=== PATIENT | male | born 1955 | race Caucasian/White ===

== ENCOUNTER 2025-01-24 14:40 | Observation (INO) ==
[2025-01-24 15:11] LABS: Basophils # (auto) 0.06 K/uL (0.00-0.20); Basophils % (auto) 0.8 %; Eosinophils # (auto) 0.98 K/uL (0.00-0.50); Eosinophils % (auto) 12.3 %; Hematocrit (blood only) 35.9 % (42.0-52.0); Hemoglobin 12.2 g/dl (14.0-18.0); Immature Granulocytes # (auto) 0.03 K/uL (0.01-0.20); Immature Granulocytes % (auto) 0.4 %; Lymphocytes # (auto) 2.05 K/uL (1.20-3.40); Lymphocytes % (auto) 25.7 %; Mean Corpuscular Hemoglobin 30.1 pg (25.0-34.0); Mean Corpuscular Volume 88.6 fL (80.0-100.0); Mean Platelet Volume 8.9 fL (9.4-12.4); Monocytes # (auto) 0.63 K/uL (0.11-0.59); Monocytes % (auto) 7.9 %; Neutrophils # (auto) 4.22 K/uL (1.40-6.50); Neutrophils % (auto) 52.9 %; Platelet Count 206 K/uL (130-400); RDW Coefficient of Variation 12.4 % (11.5-14.5); RDW Standard Deviation 40.8 fL (36.4-46.3); Red Blood Count 4.05 M/uL (4.70-6.10); White Blood Count 7.97 K/ul (4.8-10.8)
[2025-01-24 15:14] LABS: iSTAT Creatinine 1.6 mg/dl (0.6-1.3); iSTAT Hemoglobin 11.6 g/dl (14.0-18.0); iSTAT Ionized Calcium 1.05 mmol/l (1.12-1.32); iSTAT Potassium 3.9 mmol/L (3.3-5.0)
--- NOTE | 2025-01-24 15:21 | XRay Report ---
HISTORY: Weakness. TECHNIQUE: Portable AP radiograph of the chest. COMPARISON: None. FINDINGS: Increased interstitial markings throughout both lungs. Linear opacities involving both mid lungs favoring superimposed atelectasis or scarring. No pneumothorax or definite effusion. Top normal heart size. Left-sided aortic arch. Rightward tracheal deviation. Included upper abdomen is unremarkable. IMPRESSION: * Increased interstitial markings throughout both lungs are nonspecific and could represent chronic interstitial lung disease/fibrosis, interstitial pulmonary edema, or atypical pneumonia. No prior studies are available for comparison. Electronically signed by Tarun Barnes 01-24-2025 3:21 PM
[2025-01-24 15:30] LABS: Alanine Aminotransferase 8 U/L (7-52); Albumin Globulin Ratio 0.9 (0.9-2); Albumin Level 3.6 gm/dl (3.4-5.0); Alkaline Phosphatase 80 U/L (34-104); Anion Gap 8 (3-11); Aspartate Aminotransferase 22 U/L (13-39); BUN Creatinine Ratio 23.9 (10-20); Bilirubin,Total 0.4 mg/dl (0.2-1.0); Blood Urea Nitrogen 32 mg/dl (6-23); Calcium 8.6 mg/dl (8.6-10.3); Carbon Dioxide 27 mmol/L (21-32); Chloride 100 mmol/L (98-107); Creatine Kinase 66 U/L (30-223); Creatinine Clr Calc Pharmacy 46.5 ml/min; Globulin 4.1 gm/dl (2.5-4.0); Glucose 102 mg/dl (70-99(Fasting)); Magnesium 1.9 mg/dl (1.7-2.4); Potassium 3.9 mmol/L (3.5-5.1); Sodium 135 mmol/L (136-145); Total Protein 7.7 gm/dl (6.0-8.3)
--- NOTE | 2025-01-24 15:31 | Emergency Department Note ---
Impression & Plan Near syncope, Hypotension, History of recent stroke, Rash ED Provider Note Provider: Terry Bains MD CHIEF COMPLAINT: Near syncope, low blood pressure HISTORY OF PRESENT ILLNESS: Patient is a 69-year-old gentleman history of hypertension and CVA presenting here via ambulance today. Patient was a passenger and his was driving. About half hour before arrival developed significant near syncope and blurry vision and a warm feeling. Reports some back discomfort at that time. Patient significantly reports that he was hospitalized this past Sunday and Sunday at [facility] for stroke. Evidently had not been taking his blood pressure medicines for some time. Was restarted on medicines this week. Did have some food earlier today. Has been doing well. Last week blood pressure was over 200 systolic and he had generalized weakness in all 4 extremities by his report. No recurrence of that today. Has been on aspirin and Plavix since the stroke. [place] [facility] [place] Did noted developing overnight a bit of a rash on his stomach and chest. thinks on further thought that maybe this was a reaction to the HCTZ blood pressure medicine and thinks that they may have stopped it previously as this was an issue. Patient is on a KINGSLEY inhibitor and took those this morning. Received 500 mL of normal saline for EMS as was found to be 60 systolic blood pressure for them. Upon arrival blood pressure has improved. He is feeling improved denies any back pain. No chest pain reported. PAST MEDICAL HISTORY: As noted above MEDICATIONS: Reviewed home medications SOCIAL HISTORY: , smoker PHYSICAL EXAM: GENERAL: alert and oriented in no acute distress on stretcher, patient a bit tangential during discussion. Head: normocephalic and atraumatic EYES: No injection, discharge or icterus. EOMI. NECK: Trachea midline. Supple. ENT: Mucous membranes pink and moist. LUNGS: Airway patent. No retractions. Breath sounds clear with good air entry bilaterally. HEART: Regular rate and rhythm. No chest wall tenderness ABDOMEN: Soft and non-tender, without guarding or rebound. No flank tenderness. SKIN: Acyanotic, warm, dry, with slight maculopapular rashes few actually on the abdomen and chest. EXTREMITIES: Without swelling, tenderness or deformity NEUROLOGICAL: No focal deficits moving all extremities. No aphasia. No facial droop or slurred speech. Normal strength and tone in the extremities. Sensation to gross touch normal. Ambulatory here without issue in the room. EK bpm sinus rhythm with PAC. No PVC. No acute ST segment elevation or depression with a QTc of 473. CONTINUOUS CARDIAC MONITORING: was ordered and showed a heart rate of 70s to 80s bpm in normal sinus rhythm rare PAC Patient's laboratory studies and imaging reviewed. Differential includes Infection, dehydration, metabolic abnormality, hypo/hyperglycemia, electrolyte disturbance, anemia, hypoxia, cardiac sources, intracerebral event, toxicologic, neurologic, as well as other pathologies. IMPRESSION/MEDICAL DECISION MAKING: Bit difficult to get a full history from the patient with provides good additional history. [place] reached out to [facility] but reportedly unable to get records today. Is on aspirin and Plavix after recent CVA and significant hypertension restarted on blood pressure medicines. Question if there could be a possible reaction to blood pressure medicines causing the hypotension as well as possibly developing a bit of a rash across his chest and abdomen. Does not appear anaphylactic by any means. No other recent illness. No chest pain. Had some transient back pain but that resolved now. Denies significant focal deficit or numbness or weakness like recent stroke. Given however he is within a week of this past stroke, will complete a CT and CTAs of the head and neck as well as a CTA of the chest to exclude underlying PE. Given some IV fluid prior to arrival this improved with blood pressure. Given small additional fluid here. Blood work here without significant cytosis or severe anemia. No other fever or infectious symptoms reported but cultures and procalcitonin were sent for completeness. Again do not have prior labs for comparison but no severe electrolyte abnormalities of the creatinine is noted to be slightly elevated 1.3. Troponin is sent but no chest pain reported. Chest x-ray completed showing interstitial findings questioning possibly fluid versus scarring per radiology report. Patient is a smoker. Benign abdomen doubt AAA based on his rapid improvement and lack of pain here. No troponin elevation. Procalcitonin not significantly elevated. No CK or LFT observations of significance. Lactate normal. CT of the head per radiology with microvascular changes and remote left basal ganglia infarct noted. No acute findings reported per radiology. CTA of the head and neck per radiology without acute vascular findings. Discussed with patient and family. Recommend he come in for further evaluation and monitoring. Does have a diffuse rash and will give some Zyrtec and a one- time dose of steroid. Will try to avoid Benadryl given his hypotension and issues earlier. Question family of strong suspicion at this reaction to his HCTZ and they think he was previously taken off of this for this reason. Does not seem consistent with herpes, chickenpox, shingles, or bulla. Will need his medications reviewed and adjusted. Hospitalist team to evaluate the patient. DIAGNOSIS: Near syncope, hypotension, recent CVA, rash DISPOSITION: Hospitalist will evaluate Patient was agreeable with this plan. Past Med/Surg History Problem List (Updated 01/24/25 @ 20:03 by Terry Bains M.D.) Rash (Acute) History of recent stroke (Acute) Hypotension (Acute) Near syncope (Acute) Dehydration Elevated TSH CVA (cerebral vascular accident) Tobacco abuse HLD (hyperlipidemia) HTN (hypertension) with goal to be determined Pre-syncope Social History Smoking Status: Current every day smoker Feels Safe at Home: Yes Allergies Allergies Allergy/AdvReac Type Severity Reaction Status Date / Time hydrochlorothiazide Allergy Severe Rash Unverified 01/24/25 18:05 Home Meds Home Medications Medication Instructions Recorded Confirmed aspirin 81 mg chewable tablet 81 mg PO DAILY 01/24/25 01/24/25 atorvastatin 40 mg tablet 40 mg PO DAILY 01/24/25 01/24/25 clopidogrel 75 mg tablet 75 mg PO QAM 01/24/25 01/24/25 gabapentin 600 mg tablet 600 mg PO Q8H PRN Pain 01/24/25 01/24/25 ramipril 10 mg capsule 10 mg PO DAILY 01/24/25 01/24/25 Results & Data (ED) Vital Signs Vital Signs - 24 hr 01/24/25 14:45 01/24/25 14:54 01/24/25 14:56 Pulse Rate 77 Pulse Rate [Apical] Pulse Rhythm Pulse Rhythm [Apical] Pulse Strength [Apical] Respiratory Rate Respiratory Effort / Characteristics Respiratory Depth Respiratory Pattern Blood Pressure [Right Arm] Blood Pressure Mean [Right Arm] Pulse Oximetry 100 Oxygen Delivery Method Room Air Sepsis Recent Fever Within 48 Hours No Sepsis New/Unexplained Change in Mental Status N/A Sepsis Action Taken by Nursing No Action Required 01/24/25 16:04 01/24/25 16:24 01/24/25 18:00 Pulse Rate 78 Pulse Rate [Apical] 80 76 Pulse Rhythm Regular Pulse Rhythm [Apical] Regular Regular Pulse Strength [Apical] Normal Normal Respiratory Rate 16 18 20 Respiratory Effort / Characteristics Non-Labored Non-Labored Spontaneous Respiratory Depth Normal Normal Respiratory Pattern Regular Regular Blood Pressure [Right Arm] 125/71 155/92 H Blood Pressure Mean [Right Arm] 89 113 Pulse Oximetry 97 98 100 Oxygen Delivery Method Room Air Room Air Room Air Sepsis Recent Fever Within 48 Hours Sepsis New/Unexplained Change in Mental Status Sepsis Action Taken by Nursing 01/24/25 18:41 Pulse Rate 69 Pulse Rate [Apical] Pulse Rhythm Pulse Rhythm [Apical] Pulse Strength [Apical] Respiratory Rate Respiratory Effort / Characteristics Respiratory Depth Respiratory Pattern Blood Pressure [Right Arm] Blood Pressure Mean [Right Arm] Pulse Oximetry Oxygen Delivery Method Sepsis Recent Fever Within 48 Hours Sepsis New/Unexplained Change in Mental Status Sepsis Action Taken by Nursing Laboratory Data 01/24/25 14:55 01/24/25 14:55 Lab Results 01/24/25 01/24/25 01/24/25 Range/Units 14:55 15:01 15:05 WBC 7.97 (4.8-10.8) K/ul RBC 4.05 L (4.70-6.10) M/uL Hgb 12.2 L (14.0-18.0) g/dl POC Hgb 11.6 L (14.0-18.0) g/dl Hct 35.9 L (42.0-52.0) % POC Hct 34 L (42-52) % MCV 88.6 (80.0-100.0) fL MCH 30.1 (25.0-34.0) pg MCHC 34.0 (32.0-36.0) g/dL RDW Std Deviation 40.8 (36.4-46.3) fL RDW Coeff of Cathy 12.4 (11.5-14.5) % Plt Count 206 (130-400) K/uL MPV 8.9 L (9.4-12.4) fL Immature Gran % (Auto) 0.4 % Neut % (Auto) 52.9 % Lymph % (Auto) 25.7 % App[place] % (Auto) 7.9 % Eos % (Auto) 12.3 % Baso % (Auto) 0.8 % Neut # (Auto) 4.22 (1.40-6.50) K/uL Lymph # (Auto) 2.05 (1.20-3.40) K/uL Appling # (Auto) 0.63 H (0.11-0.59) K/uL Eos # (Auto) 0.98 H (0.00-0.50) K/uL Baso # (Auto) 0.06 (0.00-0.20) K/uL Immature Gran # (Auto) 0.03 (0.01-0.20) K/uL POC Sodium 138 (135-144) mmol/L Sodium 135 L (136-145) mmol/L POC Potassium 3.9 (3.3-5.0) mmol/L Potassium 3.9 (3.5-5.1) mmol/L POC Chloride 100 L (101-112) mmol/L Chloride 100 (98-107) mmol/L Carbon Dioxide 27 (21-32) mmol/L POC Total CO2 25 (24-31) mmol/L Anion Gap 8 (3-11) POC Anion Gap 17.0 (16-25) mmol/L POC BUN 30 H (7-18) mg/dl BUN 32 H (6-23) mg/dl Creatinine 1.34 (0.6-1.4) mg/dl POC Creatinine 1.6 H (0.6-1.3) mg/dl Est Cr Clr Drug Dosing 46.5 ml/min eGFR 57.34 BUN/Creatinine Ratio 23.9 H (10-20) Glucose 102 H (70-99(Fasting)) mg/dl POC Glucose (other) 97 (70-99) mg/dl Lactate 1.1 (0.4-2.0) mmol/L Calcium 8.6 (8.6-10.3) mg/dl POC Ioniz Calcium Jaida 1.05 L (1.12-1.32) mmol/l Magnesium 1.9 (1.7-2.4) mg/dl Total Bilirubin 0.4 (0.2-1.0) mg/dl AST 22 (13-39) U/L ALT 8 (7-52) U/L Alkaline Phosphatase 80 (34-104) U/L Total Creatine Kinase 66 (30-223) U/L Troponin I High Sens < 2.3 (0-20) pg/ml Total Protein 7.7 (6.0-8.3) gm/dl Albumin 3.6 (3.4-5.0) gm/dl Globulin 4.1 H (2.5-4.0) gm/dl Albumin/Globulin Ratio 0.9 (0.9-2) Procalcitonin 0.12 (0-0.5) ng/ml TSH 9.165 H (0.300-4.500) uIu/ml Free T4 0.85 (0.61-1.60) ng/dl Urine Color Urine Appearance (Clear) Urine pH (4.5-7.5) Ur Specific [place] (1.000-1.030) Urine Protein (Negative) Urine Glucose (UA) (Negative) Urine Ketones (Negative) Urine Blood (Negative) Urine Nitrite (Negative) Urine Bilirubin (Negative) Urine Urobilinogen (Negative) Ur Leukocyte Esterase (Negative) Adenovirus (PCR) Not Detected (NotDetected) B. pertussis DNA (PCR) Not Detected (NotDetected) B.parapertussis DNA PCR Not Detected (NotDetected) C. pneumoniae DNA (PCR) Not Detected (NotDetected) Coronavirus OC43 (PCR) Not Detected (NotDetected) Coronavirus HKU1 (PCR) Not Detected (NotDetected) Coronavirus 229E (PCR) Not Detected (NotDetected) SARS-CoV-2 (PCR) Not Detected (NotDetected) Coronavirus NL63 (PCR) Not Detected (NotDetected) Human Metapneumovir PCR Not Detected (NotDetected) Influenza Type A (PCR) Not Detected (NotDetected) Influenza Type B (PCR) Not Detected (NotDetected) M. pneumoniae (PCR) Not Detected (NotDetected) Parainfluenza 1 (PCR) Not Detected (NotDetected) Parainfluenza 2 (PCR) Not Detected (NotDetected) Parainfluenza 3 (PCR) Not Detected (NotDetected) Parainfluenza 4 (PCR) Not Detected (NotDetected) RSV (PCR) Not Detected (NotDetected) Entero/Rhino (PCR) Not Detected (NotDetected) 01/24/25 Range/Units 17:15 WBC (4.8-10.8) K/ul RBC (4.70-6.10) M/uL Hgb (14.0-18.0) g/dl POC Hgb (14.0-18.0) g/dl Hct (42.0-52.0) % POC Hct (42-52) % MCV (80.0-100.0) fL MCH (25.0-34.0) pg MCHC (32.0-36.0) g/dL RDW Std Deviation (36.4-46.3) fL RDW Coeff of Cathy (11.5-14.5) % Plt Count (130-400) K/uL MPV (9.4-12.4) fL Immature Gran % (Auto) % Neut % (Auto) % Lymph % (Auto) % [place] % (Auto) % Eos % (Auto) % Baso % (Auto) % Neut # (Auto) (1.40-6.50) K/uL Lymph # (Auto) (1.20-3.40) K/uL [place] # (Auto) (0.11-0.59) K/uL Eos # (Auto) (0.00-0.50) K/uL Baso # (Auto) (0.00-0.20) K/uL Immature Gran # (Auto) (0.01-0.20) K/uL POC Sodium (135-144) mmol/L Sodium (136-145) mmol/L POC Potassium (3.3-5.0) mmol/L Potassium (3.5-5.1) mmol/L POC Chloride (101-112) mmol/L Chloride (98-107) mmol/L Carbon Dioxide (21-32) mmol/L POC Total CO2 (24-31) mmol/L Anion Gap (3-11) POC Anion Gap (16-25) mmol/L POC BUN (7-18) mg/dl BUN (6-23) mg/dl Creatinine (0.6-1.4) mg/dl POC Creatinine (0.6-1.3) mg/dl Est Cr Clr Drug Dosing ml/min eGFR BUN/Creatinine Ratio (10-20) Glucose (70-99(Fasting)) mg/dl POC Glucose (other) (70-99) mg/dl Lactate (0.4-2.0) mmol/L Calcium (8.6-10.3) mg/dl POC Ioniz Calcium Jaida (1.12-1.32) mmol/l Magnesium (1.7-2.4) mg/dl Total Bilirubin (0.2-1.0) mg/dl AST (13-39) U/L ALT (7-52) U/L Alkaline Phosphatase (34-104) U/L Total Creatine Kinase (30-223) U/L Troponin I High Sens (0-20) pg/ml Total Protein (6.0-8.3) gm/dl Albumin (3.4-5.0) gm/dl Globulin (2.5-4.0) gm/dl Albumin/Globulin Ratio (0.9-2) Procalcitonin (0-0.5) ng/ml TSH (0.300-4.500) uIu/ml Free T4 (0.61-1.60) ng/dl Urine Color Yellow Urine Appearance Clear (Clear) Urine pH 7.0 (4.5-7.5) Ur Specific [place] 1.020 (1.000-1.030) Urine Protein Negative (Negative) Urine Glucose (UA) Negative (Negative) Urine Ketones Negative (Negative) Urine Blood Negative (Negative) Urine Nitrite Negative (Negative) Urine Bilirubin Negative (Negative) Urine Urobilinogen Negative (Negative) Ur Leukocyte Esterase Negative (Negative) Adenovirus (PCR) (NotDetected) B. pertussis DNA (PCR) (NotDetected) B.parapertussis DNA PCR (NotDetected) C. pneumoniae DNA (PCR) (NotDetected) Coronavirus OC43 (PCR) (NotDetected) Coronavirus HKU1 (PCR) (NotDetected) Coronavirus 229E (PCR) (NotDetected) SARS-CoV-2 (PCR) (NotDetected) Coronavirus NL63 (PCR) (NotDetected) Human Metapneumovir PCR (NotDetected) Influenza Type A (PCR) (NotDetected) Influenza Type B (PCR) (NotDetected) M. pneumoniae (PCR) (NotDetected) Parainfluenza 1 (PCR) (NotDetected) Parainfluenza 2 (PCR) (NotDetected) Parainfluenza 3 (PCR) (NotDetected) Parainfluenza 4 (PCR) (NotDetected) RSV (PCR) (NotDetected) Entero/Rhino (PCR) (NotDetected) Administered Medications Discontinued Medications Cetirizine HCl (Cetirizine Hcl 10 Mg Tablet) 10 mg PO NOW ONE Stop: 01/24/25 17:04 Last Admin: 01/24/25 18:04 Dose: 10 mg Documented By: MACARENA Dexamethasone Sodium Phosphate (DexamethasonePf 10 Mg/Ml Vial) 6 mg IV NOW ONE Stop: 01/24/25 17:04 Last Admin: 01/24/25 18:04 Dose: 6 mg Documented By: MACARENA Sodium Chloride (Nss) 500 mls @ 999 mls/hr IV .Q31M ONE Stop: 01/24/25 15:52 Last Infusion: 01/24/25 16:33 Dose: Infused Documented By: Admin: 01/24/25 16:02 Dose: 999 mls/hr Documented By: GILDA Ioversol (Optiray 320 125ml) 117 ml IV ONCE ONE Stop: 01/24/25 15:41 Last Admin: 01/24/25 15:41 Dose: 117 ml Documented By: BANNER Imaging Data Radiologist's Impression: Chest X-Ray 01/24/25 14:58 HISTORY: Weakness. TECHNIQUE: Portable AP radiograph of the chest. COMPARISON: None. FINDINGS: Increased interstitial markings throughout both lungs. Linear opacities involving both mid lungs favoring superimposed atelectasis or scarring. No pneumothorax or definite effusion. Top normal heart size. Left-sided aortic arch. Rightward tracheal deviation. Included upper abdomen is unremarkable. IMPRESSION: * Increased interstitial markings throughout both lungs are nonspecific and could represent chronic interstitial lung disease/fibrosis, interstitial pulmonary edema, or atypical pneumonia. No prior studies are available for comparison. Electronically signed by Tarun Barnes 01-24-2025 3:21 PM Chest CTA 01/24/25 15:21 HISTORY: Evaluation for pulmonary embolism. Near syncope. TECHNIQUE: Helical CT angiography of the chest was performed following uneventful administration 117 cc of Optiray 320 IV contrast. Coronal and sagittal 3D MIP reconstructionsAre also provided for interpretation COMPARISON: None. FINDINGS: Mild atherosclerotic vascular disease involving the aorta and arch vessels. No evidence of acute aortic process. No evidence of pulmonary embolism within the limitations of contrast timing and respiratory motion artifact. Main pulmonary artery is normal in caliber. Mild cardiomegaly. Coronary artery calcifications are present. No suspicious mediastinal or hilar lymph nodes. Small hiatal hernia. Included thyroid gland is unremarkable. No enlarged axillary lymph nodes. Nonspecific gas is seen in the liver, which could represent pneumobilia or portal venous gas. Severe emphysema. Cavitary right apical opacity on series 7 image 225. Left apical opacity and scarring. No focal consolidation concerning for pneumonia. Mild superimposed pulmonary fibrosis. The trachea and mainstem bronchi are clear. IMPRESSION: 1. No evidence of acute pulmonary embolism or acute aortic process. 2. Biapical opacities with right apical cavitation. This could represent apical parenchymal scarring, but differential would also include malignancy, cavitary pneumonia, or inflammatory process such as Geremias's granulomatosis. Further evaluation is recommended with PET/CT to exclude malignancy. 3. Severe emphysema. 4. Cardiomegaly. Coronary artery calcifications are present. 5. Nonspecific gas within the liver is favored to represent pneumobilia, but is nonspecific as it extends into the peripheral liver raising the possibility of portal venous gas. There is biliary ductal dilation in the liver. Consider further evaluation with CT of the abdomen and pelvis with contrast. Electronically signed by Tarun Barnes 01-24-2025 4:[address] 01/24/25 15:21 HISTORY: Near syncope. TECHNIQUE: Helical CT imaging of the head was performed without the use of IV contrast. Images are presented in axial, sagittal, and coronal reformats. COMPARISON: Head CT date01/24/2025. FINDINGS: No evidence of acute intracranial hemorrhage, abnormal extra-axial fluid collection, mass effect, or midline shift. Left basal ganglia remote lacunar infarct. Mild volume loss and presumed chronic microvascular ischemic changes. Ventricular caliber is appropriate. The fourth ventricle is midline. The basal cisterns are patent. Vargas-white differentiation appears grossly maintained.The soft tissues about the skull base and scalp are unremarkable. The globes and orbits are unremarkable. The paranasal sinuses and mastoid air cells are clear. No acute calvarial fracture. IMPRESSION: 1. No acute intracranial findings. 2. Mild volume loss and presumed chronic microvascular ischemic changes. 3. Remote lacunar infarct involving the left basal ganglia. Electronically signed by Tarun Barnes 01-24-2025 4:26 PM Head CTA 01/24/25 15:21 HISTORY: Syncope TECHNIQUE: Helical CT angiography of the head was performed MIP reconstructions are provided following uneventful administration 117 cc of Optiray 320 IV contrast. Coronal and sagittal 3D COMPARISON: CTA of the head and neck from the same day. Head CT from the same day. FINDINGS: The intradural vertebral arteries are patent. The basilar artery is patent. The posterior cerebral arteries are patent. The distal internal carotid arteries are patent. Both A1 segments are present and patent. The anterior cerebral arteries are patent. The M1 and proximal M2 segment branches are patent. The more distal MCA branches appear symmetric. The superior sagittal sinus is patent. Patent right transverse sinus. Congenitally diminutive left transverse sinus. No enhancing intracranial mass or vascular malformation is evident. The globes and orbits are unremarkable. The soft tissues about the skull base and scalp are unremarkable. The paranasal sinuses and mastoid air cells are well aerated. No acute calvarial fracture. IMPRESSION: No evidence of central vessel occlusion or focal hemodynamically significant stenosis Electronically signed by Tarun Barnes 01-24-2025 4:31 PM Neck CTA 01/24/25 15:21 HISTORY: Near syncope TECHNIQUE: CT angiography of theneck was performed following uneventful administration 117 cc of Optiray 320 IV contrast. Images are presented in axial reformats. Coronal and sagittal 3D MIP reconstructions are provided. COMPARISON: CT of the head from the same day. FINDINGS: Mild atherosclerotic vascular disease involving the aorta and arch vessels. Common carotid arteries are patent. Mild atherosclerotic calcification at the carotid bifurcations without hemodynamically significant stenosis. The cervical internal carotid arteries are patent. Patent codominant cervical vertebral arteries. The included intracranial contents are unremarkable. The soft tissues of the neck are unremarkable.Severe emphysematous changes of the lung apices. Extensive biapical pleural thickening and scarring. Degenerative changes of the spine. No acute osseous abnormality. IMPRESSION: No evidence of hemodynamically significant stenosis or major arterial occlusion. Severe emphysema with biapical pleural thickening and scarring. Mild atherosclerotic vascular disease. Electronically signed by Tarun Barnes 01-24-2025 4:28 PM Discharge Plan Visit Data Chief Complaint: Hypotension ED Provider: Terry Bains Discharge Problem: Near syncope, Hypotension, History of recent stroke, Rash Patient Disposition: Being Evaluated by Hospitalist Forms Stand Alone Forms: [facility] Prescriptions Prescriptions: No Action gabapentin 600 mg tablet 600 mg PO Q8H PRN (Reason: Pain) clopidogrel 75 mg tablet 75 mg PO QAM ramipril 10 mg capsule 10 mg PO DAILY atorvastatin 40 mg tablet 40 mg PO DAILY Rx Instructions: Per pt still taking, but last filled 08/2024 x90 day supply aspirin 81 mg Tablet,Chewable 81 mg PO DAILY Referrals Referrals: Alex Hall D.O. [Primary Care Provider] -
[2025-01-24 15:36] LABS: Troponin I High Sensitivity < 2.3 pg/ml (0-20)
[2025-01-24] MEDS: OPTIRAY 320 125ml IV ONE (15:41)
[2025-01-24 15:45] LABS: Thyroid Stimulating Hormone 9.165 uIu/ml (0.300-4.500)
[2025-01-24] MEDS: SODIUM CHLORIDE 0.9% 500 ML IV ONE (16:02)
[2025-01-24 16:22] LABS: T4 Free Thyroxine 0.85 ng/dl (0.61-1.60)
--- NOTE | 2025-01-24 16:26 | CT Scan Report ---
HISTORY: Near syncope. TECHNIQUE: Helical CT imaging of the head was performed without the use of IV contrast. Images are presented in axial, sagittal, and coronal reformats. COMPARISON: Head CT date01/24/2025. FINDINGS: No evidence of acute intracranial hemorrhage, abnormal extra-axial fluid collection, mass effect, or midline shift. Left basal ganglia remote lacunar infarct. Mild volume loss and presumed chronic microvascular ischemic changes. Ventricular caliber is appropriate. The fourth ventricle is midline. The basal cisterns are patent. Vargas-white differentiation appears grossly maintained.The soft tissues about the skull base and scalp are unremarkable. The globes and orbits are unremarkable. The paranasal sinuses and mastoid air cells are clear. No acute calvarial fracture. IMPRESSION: 1. No acute intracranial findings. 2. Mild volume loss and presumed chronic microvascular ischemic changes. 3. Remote lacunar infarct involving the left basal ganglia. Electronically signed by Tarun Barnes 01-24-2025 4:26 PM
--- NOTE | 2025-01-24 16:29 | CT Scan Report ---
HISTORY: Near syncope TECHNIQUE: CT angiography of eduardo was performed following uneventful administration 117 cc of Optiray 320 IV contrast. Images are presented in axial reformats. Coronal and sagittal 3D MIP reconstructions are provided. COMPARISON: CT of the head from the same day. FINDINGS: Mild atherosclerotic vascular disease involving the aorta and arch vessels. Common carotid arteries are patent. Mild atherosclerotic calcification at the carotid bifurcations without hemodynamically significant stenosis. The cervical internal carotid arteries are patent. Patent codominant cervical vertebral arteries. The included intracranial contents are unremarkable. The soft tissues of the neck are unremarkable.Severe emphysematous changes of the lung apices. Extensive biapical pleural thickening and scarring. Degenerative changes of the spine. No acute osseous abnormality. IMPRESSION: No evidence of hemodynamically significant stenosis or major arterial occlusion. Severe emphysema with biapical pleural thickening and scarring. Mild atherosclerotic vascular disease. Electronically signed by Tarun Barnes 01-24-2025 4:28 PM
--- NOTE | 2025-01-24 16:31 | CT Scan Report ---
HISTORY: Syncope TECHNIQUE: Helical CT angiography of the head was performed MIP reconstructions are provided following uneventful administration 117 cc of Optiray 320 IV contrast. Coronal and sagittal 3D COMPARISON: CTA of the head and neck from the same day. Head CT from the same day. FINDINGS: The intradural vertebral arteries are patent. The basilar artery is patent. The posterior cerebral arteries are patent. The distal internal carotid arteries are patent. Both A1 segments are present and patent. The anterior cerebral arteries are patent. The M1 and proximal M2 segment branches are patent. The more distal MCA branches appear symmetric. The superior sagittal sinus is patent. Patent right transverse sinus. Congenitally diminutive left transverse sinus. No enhancing intracranial mass or vascular malformation is evident. The globes and orbits are unremarkable. The soft tissues about the skull base and scalp are unremarkable. The paranasal sinuses and mastoid air cells are well aerated. No acute calvarial fracture. IMPRESSION: No evidence of central vessel occlusion or focal hemodynamically significant stenosis Electronically signed by Tarun Barnes 01-24-2025 4:31 PM
--- NOTE | 2025-01-24 16:35 | CT Scan Report ---
HISTORY: Evaluation for pulmonary embolism. Near syncope. TECHNIQUE: Helical CT angiography of the chest was performed following uneventful administration 117 cc of Optiray 320 IV contrast. Coronal and sagittal 3D MIP reconstructionsAre also provided for interpretation COMPARISON: None. FINDINGS: Mild atherosclerotic vascular disease involving the aorta and arch vessels. No evidence of acute aortic process. No evidence of pulmonary embolism within the limitations of contrast timing and respiratory motion artifact. Main pulmonary artery is normal in caliber. Mild cardiomegaly. Coronary artery calcifications are present. No suspicious mediastinal or hilar lymph nodes. Small hiatal hernia. Included thyroid gland is unremarkable. No enlarged axillary lymph nodes. Nonspecific gas is seen in the liver, which could represent pneumobilia or portal venous gas. Severe emphysema. Cavitary right apical opacity on series 7 image 225. Left apical opacity and scarring. No focal consolidation concerning for pneumonia. Mild superimposed pulmonary fibrosis. The trachea and mainstem bronchi are clear. IMPRESSION: 1. No evidence of acute pulmonary embolism or acute aortic process. 2. Biapical opacities with right apical cavitation. This could represent apical parenchymal scarring, but differential would also include malignancy, cavitary pneumonia, or inflammatory process such as Geremias's granulomatosis. Further evaluation is recommended with PET/CT to exclude malignancy. 3. Severe emphysema. 4. Cardiomegaly. Coronary artery calcifications are present. 5. Nonspecific gas within the liver is favored to represent pneumobilia, but is nonspecific as it extends into the peripheral liver raising the possibility of portal venous gas. There is biliary ductal dilation in the liver. Consider further evaluation with CT of the abdomen and pelvis with contrast. Electronically signed by Tarun Barnes 01-24-2025 4:35 PM
[2025-01-24 17:09] LABS: Adenovirus PCR Not Detected (NotDetected); Bordetella parapertussis PCR Not Detected (NotDetected); Bordetella pertussis PCR Not Detected (NotDetected); Chlamydia pneumoniae PCR Not Detected (NotDetected); Coronavirus 229E PCR Not Detected (NotDetected); Coronavirus CoV-2 (COVID19)PCR Not Detected (NotDetected); Coronavirus HKU1 PCR Not Detected (NotDetected); Coronavirus NL63 PCR Not Detected (NotDetected); Coronavirus OC43PCR Not Detected (NotDetected); Human Metapneumovirus PCR Not Detected (NotDetected); Influenza A PCR Not Detected (NotDetected); Influenza B PCR Not Detected (NotDetected); Mycoplasma pneumoniae PCR Not Detected (NotDetected); Parainfluenza Virus 1 PCR Not Detected (NotDetected); Parainfluenza Virus 2 PCR Not Detected (NotDetected); Parainfluenza Virus 3 PCR Not Detected (NotDetected); Parainfluenza Virus 4 PCR Not Detected (NotDetected); Respiratory Syncytial VirusPCR Not Detected (NotDetected); Rhinovirus/Enterovirus PCR Not Detected (NotDetected)
[2025-01-24] MEDS ORDERED: ACETAMINOPHEN 325 MG TAB PO PRN (17:35)
[2025-01-24] MEDS ORDERED: ONDANSETRON INJ 2 MG/ML 2 ML VIAL IV PRN (17:35)
--- NOTE | 2025-01-24 17:35 | History & Physical Report ---
Date of Service January 24, 2025 Assessment & Plan (1) Pre-syncope: Plan: 69yo presented with recent CVA (lacunar infarct) on Sunday at [facility] and start plavix in addition to HCTZ for BP control w/ development of rash and dizziness/pre-syncope on admission with hypotension. CT head w/o acute CVA, CTA Admit med/telemetry with monitoring BP stable 125/72 and will hold HTN medications at this time Check orthostatic VS NSS x 1 L ordered for dehydratoin on exam DISCONTINUE HCTZ -- causing skin rash/allergic reaction and had similar issue in the past. --> Dexamethasone IV, zyrtec in ER to be provided. -->Monitor for ongoing steroid but no respiratory distress or airway compromise and will schedule pepcid PO BID for now Ramipril to remain on hold for now, on 10mg daily [place]AG[place] [employer]KER and can resume/titrate in AM TSH elevated but normal T4. No hx of afib reported but can check T3 w/ AM labs given CVA x 2 in the past. (consider holter monitor at de) ECHO repeat- defer to supervising provider to cancel as likely just had one w/ stroke workup this past week and no significant murmur or pitting edema Troponin negative, EKG stable and no CP reported. EKG w/ CP as needed DVT proph:heparin sq given Cr 1.3 w/unknown baseline Monitor labs/exam (2) HTN (hypertension) with goal to be determined: Plan: HTN last week w/ systolic >200 reported On ramipril 10g daily baseline, recent rx HCTZ but issues w/ such in past and rash as above w/ dehydration on exam and would hold both/plan to discontinue HCTZ at discharge and can titrate KINGSLEY as needed but if any afib/flutter on monitor add BB (3) HLD (hyperlipidemia): Plan: continue statin, no need to repeat lipids given recent cva likely obtained and can f/u pcp for adjustment if needed (4) Tobacco abuse: Plan: Reported hx. On room air/no SOB reported and CTA chest negative for PE but does note biapical opacities w/ R apical cavitation and could represent apical scarring but could include malignancy, cavitary pneumonia or inflammatory process like Geremias's granulomatosis --> further eval w/ PET/CT to exclude malignancy. Can f/u outpt or sooner if need for issues Cessation recommended Also noted gas within liver, ?pneumobilia but ?portal venous gas. Does have biliary ductal dilatation in the liver but LFTs wnl and no abd pain --> monitor (5) CVA (cerebral vascular accident): Plan: Hx this past week as above, on aspirin/plavix which he took this morning. continue both/statin in AM. CT imaging neg for acute CVA on admission. Monitor on telemetry (6) Elevated TSH: Plan: notable TSH to 9 but ?reactive from dehydration/syncope as above but will check T3 for completeness given hx CVA. No palpitations or pre-tibial edema on exam (7) Dehydration: Plan: IVF ordered/HCTZ on hold Monitor on subsequent exam but would avoid diuretics for BP management to prevent issue Plan DVT Proph: heparin SQ BID Dispo: monitor on telemetry for arrthymia, BP meds held/IVF ordered and monitor response to dexamethasone as ordered in ER once given. History of Present Illness Chief Complaint: hypotension, syncope Primary Care Provider: Alex Hall 69yo male with PMHx significant for HTN and CVA (on aspirin and plavix), smoking presented for near syncope and blurry vision and BP systolic 60s for EMS and received 500cc NSS and on arrival BP improved, presently 125/71. Patient reports he was recently admitted at [facility] this past weekend and found to have a STROKE. Was having issues with mobility but that has since resolved (lacunar infarct) and was placed on plavix in addition to his aspirin for ongoing management and no hx of afib reported. Was started on HCTZ (filled 3/) due to elevated BPs w/ systolic >200s and has taken for ~4-5 days and noticed rash to stomach/chest. Currently reports no improvement since admission, 98% on RA but has not received Dexamethasone or zyrtec from ER as name band wasn't scanning. He has been on ramipril for a period of time and wondering if this could be increased as he notes he believes he was on HCTZ and had issues with such in the past. He does not have issues with LE edema or CHF history and no history of blood clots. He is skinny at baseline and does report increased urination once on this medication and discussed could also have component of allergic reaction in setting of dehydration from such causing issues. Notable on gabapentin 600mg q8h prn at home -- per patient has been on for >2 years and for pain he's had from shingles. TSH was elevated but T4 wnl and again no palpitations/prodrome prior to issue but will check t3 w/ AM labs and monitor on telemetry. Repeat ECHO but did have once w/ stroke work-up. Appears dry, fluids to be provided by nursing and will order additional IVF for dehydration on exam. Discussed admission for work-up and possible discharge in AM on increased ramipril if needed for blood pressure but will hold HTN agents at this time. He notes he took his aspirin and plavix this morning and will just need his gabapentin tonight. Is a full code. Family updated at bedside. Allergies Allergy/AdvReac Type Severity Reaction Status Date / Time hydrochlorothiazide Allergy Severe Rash Unverified 01/24/25 18:05 Home Medications Medication Instructions Recorded Confirmed Type aspirin 81 mg chewable tablet 81 mg PO DAILY 01/24/25 01/24/25 History atorvastatin 40 mg tablet 40 mg PO DAILY 01/24/25 01/24/25 History clopidogrel 75 mg tablet 75 mg PO QAM 01/24/25 01/24/25 History gabapentin 600 mg tablet 600 mg PO Q8H PRN Pain 01/24/25 01/24/25 History ramipril 10 mg capsule 10 mg PO DAILY 01/24/25 01/24/25 History Past Med/Surg History Problem List (Updated 01/24/25 @ 20:03 by Terry Bains M.D.) Rash (Acute) History of recent stroke (Acute) Hypotension (Acute) Near syncope (Acute) Dehydration Elevated TSH CVA (cerebral vascular accident) Tobacco abuse HLD (hyperlipidemia) HTN (hypertension) with goal to be determined Pre-syncope Social History Smoking Status: Current every day smoker Tobacco Type: Cigarettes Cigarettes Per Day: 1 pack; Second Hand Exposure: No; Hx Alcohol Use: No Hx Substance Use: No Preferred Language: Spanish Communication Ability: Effective Sample Supervisor Required: No Beliefs That Will Affect Care: None Current Living Situation: Spouse Other Information That Helps Us Care for You: No Feels Safe at Home: Yes Safety Concerns: Feels Safe At This Time Assistive Devices: None Review of Systems Review of Systems: All systems reviewed & are unremarkable except as noted in HPI & below Physical Exam Physical Exam: General: 69 yo male sitting up in bed, family at bedside, NAD Head atraumatic, normocephalic, mm slight dry, trachea midline Chest; rash to chest/upper neck, no airway compromise (unchanged, not yet got steroids) Resp: bibasilar crackles but no wheezing/rales, on room air, tachypnea CV: RRR. no significant m/r/g, no pitting edema or calf tenderness, pulses present GI: +BS, soft/NT no portillo MSK/Neuro: nonfocal, able to move all extremities, answering questions appropriately, no confused Psych: AOx3, cooperative with exam Results & Data Results & Data Vital Signs (Past 12 Hours) Vital Signs Pulse Pulse Resp BP Pulse Ox O2 Del Method 01/24/25 16:24 78 18 98 Room Air 01/24/25 16:04 80 16 125/71 97 Room Air 01/24/25 14:56 100 Room Air 01/24/25 14:54 77 Laboratory Results 01/24/25 01/24/25 01/24/25 Range/Units 17:15 15:05 15:01 WBC (4.8-10.8) K/ul RBC (4.70-6.10) M/uL Hgb (14.0-18.0) g/dl POC Hgb 11.6 L (14.0-18.0) g/dl Hct (42.0-52.0) % POC Hct 34 L (42-52) % MCV (80.0-100.0) fL MCH (25.0-34.0) pg MCHC (32.0-36.0) g/dL RDW Std Deviation (36.4-46.3) fL RDW Coeff of Cathy (11.5-14.5) % Plt Count (130-400) K/uL MPV (9.4-12.4) fL Immature Gran % (Auto) % Neut % (Auto) % Lymph % (Auto) % [place] % (Auto) % Eos % (Auto) % Baso % (Auto) % Neut # (Auto) (1.40-6.50) K/uL Lymph # (Auto) (1.20-3.40) K/uL [place] # (Auto) (0.11-0.59) K/uL Eos # (Auto) (0.00-0.50) K/uL Baso # (Auto) (0.00-0.20) K/uL Immature Gran # (Auto) (0.01-0.20) K/uL POC Sodium 138 (135-144) mmol/L Sodium (136-145) mmol/L POC Potassium 3.9 (3.3-5.0) mmol/L Potassium (3.5-5.1) mmol/L POC Chloride 100 L (101-112) mmol/L Chloride (98-107) mmol/L Carbon Dioxide (21-32) mmol/L POC Total CO2 25 (24-31) mmol/L Anion Gap (3-11) POC Anion Gap 17.0 (16-25) mmol/L POC BUN 30 H (7-18) mg/dl BUN (6-23) mg/dl Creatinine (0.6-1.4) mg/dl POC Creatinine 1.6 H (0.6-1.3) mg/dl Est Cr Clr Drug Dosing ml/min eGFR BUN/Creatinine Ratio (10-20) Glucose (70-99(Fasting)) mg/dl POC Glucose (other) 97 (70-99) mg/dl Lactate 1.1 (0.4-2.0) mmol/L Calcium (8.6-10.3) mg/dl POC Ioniz Calcium Jaida 1.05 L (1.12-1.32) mmol/l Magnesium (1.7-2.4) mg/dl Total Bilirubin (0.2-1.0) mg/dl AST (13-39) U/L ALT (7-52) U/L Alkaline Phosphatase (34-104) U/L Total Creatine Kinase (30-223) U/L Troponin I High Sens (0-20) pg/ml Total Protein (6.0-8.3) gm/dl Albumin (3.4-5.0) gm/dl Globulin (2.5-4.0) gm/dl Albumin/Globulin Ratio (0.9-2) Procalcitonin (0-0.5) ng/ml TSH (0.300-4.500) uIu/ml Free T4 (0.61-1.60) ng/dl Urine Color Yellow Urine Appearance Clear (Clear) Urine pH 7.0 (4.5-7.5) Ur Specific [place] 1.020 (1.000-1.030) Urine Protein Negative (Negative) Urine Glucose (UA) Negative (Negative) Urine Ketones Negative (Negative) Urine Blood Negative (Negative) Urine Nitrite Negative (Negative) Urine Bilirubin Negative (Negative) Urine Urobilinogen Negative (Negative) Ur Leukocyte Esterase Negative (Negative) Adenovirus (PCR) Not Detected (NotDetected) B. pertussis DNA (PCR) Not Detected (NotDetected) B.parapertussis DNA PCR Not Detected (NotDetected) C. pneumoniae DNA (PCR) Not Detected (NotDetected) Coronavirus OC43 (PCR) Not Detected (NotDetected) Coronavirus HKU1 (PCR) Not Detected (NotDetected) Coronavirus 229E (PCR) Not Detected (NotDetected) SARS-CoV-2 (PCR) Not Detected (NotDetected) Coronavirus NL63 (PCR) Not Detected (NotDetected) Human Metapneumovir PCR Not Detected (NotDetected) Influenza Type A (PCR) Not Detected (NotDetected) Influenza Type B (PCR) Not Detected (NotDetected) M. pneumoniae (PCR) Not Detected (NotDetected) Parainfluenza 1 (PCR) Not Detected (NotDetected) Parainfluenza 2 (PCR) Not Detected (NotDetected) Parainfluenza 3 (PCR) Not Detected (NotDetected) Parainfluenza 4 (PCR) Not Detected (NotDetected) RSV (PCR) Not Detected (NotDetected) Entero/Rhino (PCR) Not Detected (NotDetected) 01/24/25 Range/Units 14:55 WBC 7.97 (4.8-10.8) K/ul RBC 4.05 L (4.70-6.10) M/uL Hgb 12.2 L (14.0-18.0) g/dl POC Hgb (14.0-18.0) g/dl Hct 35.9 L (42.0-52.0) % POC Hct (42-52) % MCV 88.6 (80.0-100.0) fL MCH 30.1 (25.0-34.0) pg MCHC 34.0 (32.0-36.0) g/dL RDW Std Deviation 40.8 (36.4-46.3) fL RDW Coeff of Cathy 12.4 (11.5-14.5) % Plt Count 206 (130-400) K/uL MPV 8.9 L (9.4-12.4) fL Immature Gran % (Auto) 0.4 % Neut % (Auto) 52.9 % Lymph % (Auto) 25.7 % Gladwin % (Auto) 7.9 % Eos % (Auto) 12.3 % Baso % (Auto) 0.8 % Neut # (Auto) 4.22 (1.40-6.50) K/uL Lymph # (Auto) 2.05 (1.20-3.40) K/uL [place]win # (Auto) 0.63 H (0.11-0.59) K/uL Eos # (Auto) 0.98 H (0.00-0.50) K/uL Baso # (Auto) 0.06 (0.00-0.20) K/uL Immature Gran # (Auto) 0.03 (0.01-0.20) K/uL POC Sodium (135-144) mmol/L Sodium 135 L (136-145) mmol/L POC Potassium (3.3-5.0) mmol/L Potassium 3.9 (3.5-5.1) mmol/L POC Chloride (101-112) mmol/L Chloride 100 (98-107) mmol/L Carbon Dioxide 27 (21-32) mmol/L POC Total CO2 (24-31) mmol/L Anion Gap 8 (3-11) POC Anion Gap (16-25) mmol/L POC BUN (7-18) mg/dl BUN 32 H (6-23) mg/dl Creatinine 1.34 (0.6-1.4) mg/dl POC Creatinine (0.6-1.3) mg/dl Est Cr Clr Drug Dosing 46.5 ml/min eGFR 57.34 BUN/Creatinine Ratio 23.9 H (10-20) Glucose 102 H (70-99(Fasting)) mg/dl POC Glucose (other) (70-99) mg/dl Lactate (0.4-2.0) mmol/L Calcium 8.6 (8.6-10.3) mg/dl POC Ioniz Calcium Jaida (1.12-1.32) mmol/l Magnesium 1.9 (1.7-2.4) mg/dl Total Bilirubin 0.4 (0.2-1.0) mg/dl AST 22 (13-39) U/L ALT 8 (7-52) U/L Alkaline Phosphatase 80 (34-104) U/L Total Creatine Kinase 66 (30-223) U/L Troponin I High Sens < 2.3 (0-20) pg/ml Total Protein 7.7 (6.0-8.3) gm/dl Albumin 3.6 (3.4-5.0) gm/dl Globulin 4.1 H (2.5-4.0) gm/dl Albumin/Globulin Ratio 0.9 (0.9-2) Procalcitonin 0.12 (0-0.5) ng/ml TSH 9.165 H (0.300-4.500) uIu/ml Free T4 0.85 (0.61-1.60) ng/dl Urine Color Urine Appearance (Clear) Urine pH (4.5-7.5) Ur Specific [place] (1.000-1.030) Urine Protein (Negative) Urine Glucose (UA) (Negative) Urine Ketones (Negative) Urine Blood (Negative) Urine Nitrite (Negative) Urine Bilirubin (Negative) Urine Urobilinogen (Negative) Ur Leukocyte Esterase (Negative) Adenovirus (PCR) (NotDetected) B. pertussis DNA (PCR) (NotDetected) B.parapertussis DNA PCR (NotDetected) C. pneumoniae DNA (PCR) (NotDetected) Coronavirus OC43 (PCR) (NotDetected) Coronavirus HKU1 (PCR) (NotDetected) Coronavirus 229E (PCR) (NotDetected) SARS-CoV-2 (PCR) (NotDetected) Coronavirus NL63 (PCR) (NotDetected) Human Metapneumovir PCR (NotDetected) Influenza Type A (PCR) (NotDetected) Influenza Type B (PCR) (NotDetected) M. pneumoniae (PCR) (NotDetected) Parainfluenza 1 (PCR) (NotDetected) Parainfluenza 2 (PCR) (NotDetected) Parainfluenza 3 (PCR) (NotDetected) Parainfluenza 4 (PCR) (NotDetected) RSV (PCR) (NotDetected) Entero/Rhino (PCR) (NotDetected) Diagnostic Findings Chest X-Ray 01/24/25 14:58 HISTORY: Weakness. TECHNIQUE: Portable AP radiograph of the chest. COMPARISON: None. FINDINGS: Increased interstitial markings throughout both lungs. Linear opacities involving both mid lungs favoring superimposed atelectasis or scarring. No pneumothorax or definite effusion. Top normal heart size. Left-sided aortic arch. Rightward tracheal deviation. Included upper abdomen is unremarkable. IMPRESSION: * Increased interstitial markings throughout both lungs are nonspecific and could represent chronic interstitial lung disease/fibrosis, interstitial pulmonary edema, or atypical pneumonia. No prior studies are available for comparison. Electronically signed by Tarun Barnes 01-24-2025 3:21 PM Chest CTA 01/24/25 15:21 HISTORY: Evaluation for pulmonary embolism. Near syncope. TECHNIQUE: Helical CT angiography of the chest was performed following uneventful administration 117 cc of Optiray 320 IV contrast. Coronal and sagittal 3D MIP reconstructionsAre also provided for interpretation COMPARISON: None. FINDINGS: Mild atherosclerotic vascular disease involving the aorta and arch vessels. No evidence of acute aortic process. No evidence of pulmonary embolism within the limitations of contrast timing and respiratory motion artifact. Main pulmonary artery is normal in caliber. Mild cardiomegaly. Coronary artery calcifications are present. No suspicious mediastinal or hilar lymph nodes. Small hiatal hernia. Included thyroid gland is unremarkable. No enlarged axillary lymph nodes. Nonspecific gas is seen in the liver, which could represent pneumobilia or portal venous gas. Severe emphysema. Cavitary right apical opacity on series 7 image 225. Left apical opacity and scarring. No focal consolidation concerning for pneumonia. Mild superimposed pulmonary fibrosis. The trachea and mainstem bronchi are clear. IMPRESSION: 1. No evidence of acute pulmonary embolism or acute aortic process. 2. Biapical opacities with right apical cavitation. This could represent apical parenchymal scarring, but differential would also include malignancy, cavitary pneumonia, or inflammatory process such as Geremias's granulomatosis. Further evaluation is recommended with PET/CT to exclude malignancy. 3. Severe emphysema. 4. Cardiomegaly. Coronary artery calcifications are present. 5. Nonspecific gas within the liver is favored to represent pneumobilia, but is nonspecific as it extends into the peripheral liver raising the possibility of portal venous gas. There is biliary ductal dilation in the liver. Consider further evaluation with CT of the abdomen and pelvis with contrast. Electronically signed by Tarun Barnes 01-24-2025 4:[address] 01/24/25 15:21 HISTORY: Near syncope. TECHNIQUE: Helical CT imaging of the head was performed without the use of IV contrast. Images are presented in axial, sagittal, and coronal reformats. COMPARISON: Head CT date01/24/2025. FINDINGS: No evidence of acute intracranial hemorrhage, abnormal extra-axial fluid collection, mass effect, or midline shift. Left basal ganglia remote lacunar infarct. Mild volume loss and presumed chronic microvascular ischemic changes. Ventricular caliber is appropriate. The fourth ventricle is midline. The basal cisterns are patent. Vargas-white differentiation appears grossly maintained.The soft tissues about the skull base and scalp are unremarkable. The globes and orbits are unremarkable. The paranasal sinuses and mastoid air cells are clear. No acute calvarial fracture. IMPRESSION: 1. No acute intracranial findings. 2. Mild volume loss and presumed chronic microvascular ischemic changes. 3. Remote lacunar infarct involving the left basal ganglia. Electronically signed by Tarun Barnes 01-24-2025 4:26 PM Head CTA 01/24/25 15:21 HISTORY: Syncope TECHNIQUE: Helical CT angiography of the head was performed MIP reconstructions are provided following uneventful administration 117 cc of Optiray 320 IV contrast. Coronal and sagittal 3D COMPARISON: CTA of the head and neck from the same day. Head CT from the same day. FINDINGS: The intradural vertebral arteries are patent. The basilar artery is patent. The posterior cerebral arteries are patent. The distal internal carotid arteries are patent. Both A1 segments are present and patent. The anterior cerebral arteries are patent. The M1 and proximal M2 segment branches are patent. The more distal MCA branches appear symmetric. The superior sagittal sinus is patent. Patent right transverse sinus. Congenitally diminutive left transverse sinus. No enhancing intracranial mass or vascular malformation is evident. The globes and orbits are unremarkable. The soft tissues about the skull base and scalp are unremarkable. The paranasal sinuses and mastoid air cells are well aerated. No acute calvarial fracture. IMPRESSION: No evidence of central vessel occlusion or focal hemodynamically significant stenosis Electronically signed by Tarun Barnes 01-24-2025 4:31 PM Neck CTA 01/24/25 15:21 HISTORY: Near syncope TECHNIQUE: CT angiography of theneck was performed following uneventful administration 117 cc of Optiray 320 IV contrast. Images are presented in axial reformats. Coronal and sagittal 3D MIP reconstructions are provided. COMPARISON: CT of the head from the same day. FINDINGS: Mild atherosclerotic vascular disease involving the aorta and arch vessels. Common carotid arteries are patent. Mild atherosclerotic calcification at the carotid bifurcations without hemodynamically significant stenosis. The cervical internal carotid arteries are patent. Patent codominant cervical vertebral arteries. The included intracranial contents are unremarkable. The soft tissues of the neck are unremarkable.Severe emphysematous changes of the lung apices. Extensive biapical pleural thickening and scarring. Degenerative changes of the spine. No acute osseous abnormality. IMPRESSION: No evidence of hemodynamically significant stenosis or major arterial occlusion. Severe emphysema with biapical pleural thickening and scarring. Mild atherosclerotic vascular disease. Electronically signed by Tarun Barnes 01-24-2025 4:28 PM Supervising Physician Co-Signing Physician Notes During face to face encounter, I obtained a history and physical examination, discussed plan of care with patient. I discussed plan of care with CARMEN Ferrari. I reviewed above note and agree with it except for the following: Patient admitted with presyncope. Likely secondary to allergic reaction to hctz. hold hctz and monitor orthostatics. blood pressure has been stable in the ED PG Care Time/CCT Total # of Minutes Spent Total Time Spent with Patient: Total time spent is greater than 50% in coordination of care (as documented) at patient's floor/unit and/or counseling patient: Coding Level of Care Code 94546 INT INP/OBS CARE 3/75MIN Diagnoses Pre-syncope R55 HTN (hypertension) with goal to be determined I10 HLD (hyperlipidemia) E78.5 Tobacco abuse Z72.0 CVA (cerebral vascular accident) I63.9 Elevated TSH R79.89 Dehydration E86.0
[2025-01-24 17:49] LABS: Appearance Urine Clear (Clear); Bilirubin Urine Negative (Negative); Blood Urine Negative (Negative); Color Urine Yellow; Glucose Urine UA Negative (Negative); Ketones Urine Negative (Negative); Leukocyte Esterase Urine Negative (Negative); Nitrite Urine Negative (Negative); Protein Urine Negative (Negative); Urobilinogen Urine Negative (Negative)
[2025-01-24] MEDS: CETIRIZINE HCL 10 MG TABLET PO ONE (18:04)
[2025-01-24] MEDS: dexAMETHasone**PF** 10 MG/ML VIAL IV ONE (18:04)
[2025-01-24 20:11] VITALS: RESP 18
[2025-01-24] MEDS: HEPARIN SOD 5,000 UNIT/0.5 ML VIAL SQ SCH (20:29)
--- NOTE | 2025-01-24 22:55 | Electrocardiogram Report ---
Test Reason : Blood Pressure : */* mmHG Vent. Rate : 81 BPM Atrial Rate : 81 BPM P-R Int : 162 ms QRS Dur : 102 ms QT Int : 408 ms P-R-T Axes : 84 35 62 degrees QTcB Int : 473 ms Sinus rhythm with Premature atrial complexes Otherwise normal ECG No previous ECGs available Confirmed by Steffen Pineda ([id number]) on 01/24/2025 10:55:09 PM Referred By: REFERRED SELF Confirmed By: Steffen Pineda
[2025-01-24] MEDS: GABAPENTIN 600 MG TAB PO SCH (23:10)
[2025-01-24] MEDS: FAMOTIDINE 20 MG TAB PO SCH (23:10)
[2025-01-24] MEDS: SODIUM CHLORIDE 0.9% 1,000 ML IV SCH (23:10)
[2025-01-25 07:21] LABS: Hematocrit (blood only) 35.5 % (42.0-52.0); Hemoglobin 12.5 g/dl (14.0-18.0); Mean Corpuscular Hemoglobin 30.9 pg (25.0-34.0); Mean Corpuscular Hgb Conc 35.2 g/dL (32.0-36.0); Mean Corpuscular Volume 87.9 fL (80.0-100.0); Platelet Count 180 K/uL (130-400); RDW Coefficient of Variation 12.3 % (11.5-14.5); RDW Standard Deviation 39.8 fL (36.4-46.3); Red Blood Count 4.04 M/uL (4.70-6.10); White Blood Count 5.25 K/ul (4.8-10.8)
[2025-01-25 07:41] LABS: Creatinine Clr Calc Pharmacy 66.5 ml/min
[2025-01-25] MEDS: ATORVASTATIN 40 MG TAB PO SCH (07:53)
[2025-01-25] MEDS: CLOPIDOGREL BISULFATE 75 MG TAB PO SCH (07:53)
[2025-01-25] MEDS: ASPIRIN 81 MG ECTAB PO SCH (07:53)
[2025-01-25 08:19] LABS: BUN Creatinine Ratio 26.4 (10-20); Calcium 8.6 mg/dl (8.6-10.3); Potassium 4.3 mmol/L (3.5-5.1)
[2025-01-25 11:21] VITALS: PULSE 61; TEMP 98.1; O2SAT 98
[2025-01-25] MEDS: NICOTINE 21 MG/24 HR TDSY TD SCH (11:25)
--- NOTE | 2025-01-25 11:46 | Discharge Summary ---
Date of Service January 25, 2025 Admission HPI Per Admitting Provider 69yo male with PMHx significant for HTN and CVA (on aspirin and plavix), smoking presented for near syncope and blurry vision and BP systolic 60s for EMS and received 500cc NSS and on arrival BP improved, presently 125/71. Patient reports he was recently admitted at [facility] this past weekend and found to have a STROKE. Was having issues with mobility but that has since resolved (lacunar infarct) and was placed on plavix in addition to his aspirin for ongoing management and no hx of afib reported. Was started on HCTZ (filled /) due to elevated BPs w/ systolic >200s and has taken for ~4-5 days and noticed rash to stomach/chest. Currently reports no improvement since admission, 98% on RA but has not received Dexamethasone or zyrtec from ER as name band wasn't scanning. He has been on ramipril for a liliana od of time and wondering if this could be increased as he notes he believes he was on HCTZ and had issues with such in the past. He does not have issues with LE edema or CHF history and no history of blood clots. He is skinny at baseline and does report increased urination once on this medication and discussed could also have component of allergic reaction in setting of dehydration from such causing issues. Notable on gabapentin 600mg q8h prn at home -- per patient has been on for >2 years and for pain he's had from shingles. TSH was elevated but T4 wnl and again no palpitations/prodrome prior to issue but will check t3 w/ AM labs and monitor on telemetry. Repeat ECHO but did have once w/ stroke work-up. Appears dry, fluids to be provided by nursing and will order additional IVF for dehydration on exam. Discussed admission for work-up and possible discharge in AM on increased ramipril if needed for blood pressure but will hold HTN agents at this time. He notes he took his aspirin and plavix this morning and will just need his gabapentin tonight. Is a full code. Family updated at bedside. Principal Diagnosis Dehydration Discharge Exam General: 69 yo male sitting up in bed, family at bedside, NAD HEENT atraumatic, normocephalic, GERALD, External ear with normal appearance, MMM, trachea midline Chest: Red macular rash to chest/upper neck, no airway compromise Resp: CTAB, decreased air movement in upper lobes, on room air, no increased work of breathing CV: RRR. no significant m/r/g, no pitting edema or calf tenderness, pulses present GI: Normoactive BS, non distended, soft/NT MSK/Neuro: nonfocal, able to move all extremities, answering questions appropriately, no confused Psych: AOx3, cooperative with exam Discharge Data Allergies Allergy/AdvReac Type Severity Reaction Status Date / Time hydrochlorothiazide Allergy Severe Rash Unverified 01/24/25 18:05 Consultations 01/24/25 18:15 ED Decision to Admit Stat Ordered Studies 01/24/25 15:21 CT angio chest PE protocol Stat CT angio head w con Stat CT angio neck with con Stat CT head/brain wo con Stat Hospital Course (1) Pre-syncope: 69yo presented with recent CVA (lacunar infarct) on Sunday at [facility] and start plavix in addition to HCTZ for BP control w/ development of rash and dizziness/pre-syncope on admission with hypotension. CT head w/o acute CVA, CTA Troponin negative, EKG stable and no CP reported. #Dehydration/drug reaction/rash - Admitted med/telemetry with monitoring - orthostatic VS appear normal - NSS x 1 L at admission and maintenance 80mls started on floor - Discontinued HCTZ -- causing skin rash/allergic reaction and had similar issue in the past. - Given Dexamethasone IV and zyrtec in ED. - Scheduled pepcid PO BID #HTN/Recent CVA - Ramipril held at admission - BP's have elevated to 160-170/60-70 - Restarted Ramipril 10mg this am - Continue 81mg asa - Continue Plavix 75mg #Elevated TSH TSH elevated but normal T4. No hx of afib reported -Defer T3 or holter monitor to PCP discretion in outpatient setting #Tobacco use - Reported hx. On room air/no SOB reported and CTA chest negative for PE but does note biapical opacities w/ R apical cavitation and could represent apical scarring but could include malignancy, cavitary pneumonia or inflammatory process like Geremias's granulomatosis -Recommended low dose CT ordered in outpatient setting for further assessment - Cessation recommended - Ordered Nicotine patch Chronic condition: -Hyperlipidemia- Continue statin -Herpetic neuralgia- Continue Gabapentin DVT proph:heparin sq given Cr 1.3 w/unknown baseline Monitor labs/exam (2) HTN (hypertension) with goal to be determined: HTN last week w/ systolic >200 reported On ramipril 10g daily baseline, recent rx HCTZ but issues w/ such in past and rash as above w/ dehydration on exam and would hold both/plan to discontinue HCTZ at discharge and can titrate KINGSLEY as needed but if any afib/flutter on monitor add BB (3) HLD (hyperlipidemia): continue statin, no need to repeat lipids given recent cva likely obtained and can f/u pcp for adjustment if needed (4) Tobacco abuse: Reported hx. On room air/no SOB reported and CTA chest negative for PE but does note biapical opacities w/ R apical cavitation and could represent apical scarring but could include malignancy, cavitary pneumonia or inflammatory process like Geremias's granulomatosis --> further eval w/ PET/CT to exclude malignancy. Can f/u outpt or sooner if need for issues Cessation recommended Also noted gas within liver, ?pneumobilia but ?portal venous gas. Does have biliary ductal dilatation in the liver but LFTs wnl and no abd pain --> monitor (5) CVA (cerebral vascular accident): Hx this past week as above, on aspirin/plavix which he took this morning. continue both/statin in AM. CT imaging neg for acute CVA on admission. Monitor on telemetry (6) Elevated TSH: notable TSH to 9 but ?reactive from dehydration/syncope as above but will check T3 for completeness given hx CVA. No palpitations or pre-tibial edema on exam (7) Dehydration: IVF ordered/HCTZ on hold Monitor on subsequent exam but would avoid diuretics for BP management to prevent issue Plan DVT Proph: heparin SQ BID Dispo: monitor on telemetry for arrthymia, BP meds held/IVF ordered and monitor response to dexamethasone as ordered in ER once given. Total Time Total Time Spent Total Time Spent (In Minutes): As per attending physician's attestation Discharge Plan Discharge Items Patient Disposition: Home - Self-Care Reason For Visit: SYNCOPE,HYPOTENSION,DRUG REACTION Discharge Diagnosis: Dehydration, drug reaction Activity: Resume your previous activity Non-emergency contact: Primary Care Provider Call non-emergency contact if: your symptoms worsen Follow-up/Referrals: Alex Hall D.O. [Primary Care Provider] - (PLEASE CALL YOUR PRIMARY CARE PROVIDER TO SCHEDULE A HOSPITAL DISCHARGE FOLLOW-UP APPOINTMENT WITHIN 7-10 DAYS) Diet: Regular Addtl Attending Provider Instructions: You were admitted due to dehydration and drug reaction rash likely from Hydrochlorothiazide. At this time, please stop taking this medication and follow up with your primary care physician for changes to your blood pressure medications. You were given a steroid to help reduce the rash and itching from the drug reaction. You can continue taking famotidine twice a day for the next 5 days, which has anti-histamine effects and should help as rash resolves. A prescription was sent to your pharmacy. The CT chest taken in the emergency department showed some changes in the upper segments of both lungs. We would recommend a follow up lose dose CT in the near future, which can be ordered by your PCP. Please keep your scheduled appointment with your PCP for 01/26/25 and let them know you were seen in the hospital. Thank you for choosing [facility] for your health care Pending Studies at Discharge: No Stand-Alone Forms: My [facility] [employer], Smoking Cessation Medications and DC Order Prescriptions: New famotidine 20 mg Tablet 20 mg PO BID 5 Days Qty: 10 0RF nicotine [Nicoderm CQ] 21 mg/24 hr Patch 24 Hour 1 patch transdermal QAM 15 Days Qty: 14 0RF Continued gabapentin 600 mg tablet 600 mg PO Q8H PRN (Reason: Pain) clopidogrel 75 mg tablet 75 mg PO QAM ramipril 10 mg capsule 10 mg PO DAILY atorvastatin 40 mg tablet 40 mg PO DAILY Rx Instructions: Per pt still taking, but last filled 08/2024 x90 day supply aspirin 81 mg Tablet,Chewable 81 mg PO DAILY Discharge Orders: Discharge Order (Routine); Ordered 01/25/25 Ordered By: Leticia Wong Admission Data Admit Date/Time: 01/24/25 17:35 Attending Provider: Shane Acosta Admit Provider: Shane Acosta Primary Care Provider: Alex Hall Other Providers: Shane Acosta Other Interventions: Discharge Summary Assessment (RN) Last Done: 01/25/25 12:05 Supervising Physician Co-Signing Physician Notes During face to face encounter, I obtained a history and physical examination, discussed plan of care with patient. I discussed plan of care with Judith Carter I reviewed above note and agree with it except for the following: Patient admitted with presyncope. Likely secondary to allergic reaction to hctz. hold hctz and monitor orthostatics. blood pressure has been stable. Patient will be discharged Resident Activity Tracking Resident Involvement: Resident Care Provided Care Provided: Adult Hospital Medicine
[2025-01-25 12:07] VITALS: BP 170/74
--- NOTE | 2025-01-29 08:38 | Billing Data ---
Date of Service January 25, 2025 Coding Level of Care Code 90151 INP/OBS DISCH >30 MIN Time Spent (min) 32 Comment 32 minutes spent on case
== END 2025-01-25 13:42 | disposition home or self-care (01) | DRG 641 ==
LOC: ED 14:40 → 2W 17:35 → INTOOBSV 17:35 → 2W 21:17